=== PATIENT | male | born 1950 | race Caucasian/White ===

== ENCOUNTER 2020-09-26 05:58 | Inpatient (IN) ==
[2020-09-21 16:26] LABS: Basophils # 0.1 10*3/uL (0.0-0.2); Basophils % 1.1 % (0.0-0.8); Eosinophils # 0.3 10*3/uL (0.0-0.87); Eosinophils % 4.2 % (0.00-10.9); Hematocrit 46.4 VOL% (42.0-52.0); Hemoglobin 14.4 GM/DL (14.0-18.0); Immature Granulocytes % 0.5 %; Immature Granulocytes Absolute 0.04 #; Lymphocytes # 2.1 10*3/uL (1.4-4.0); Lymphocytes % 26.5 % (21.2-54.2); Mean Platelet Volume 10.1 FL (9.6-12.0); Neutrophils % 56.7 % (38.7-73.9); Platelet Count 210 T/CUMM (130-400); Red Blood Count 4.64 MC/CUMM (3.8-5.5); Red Cell Distribution Width 13.9 % (9.3-17.3); White Blood Count 7.9 T/CUMM (4-12)
[2020-09-21 16:43] LABS: Calcium 8.5 MG/DL (8.5-10.1); Osmolality,Calculated 290.4 MOS/KG (273-304); Potassium 4.4 MMOL/L (3.5-5.1)
[2020-09-26] MEDS ORDERED: ALVIMOPAN 12 MG CAPSULE PO ONE (06:00)
[2020-09-26] MEDS ORDERED: ERTAPENEM 1,000 MG in SODIUM CHLORIDE 0.9% 100 ML IV ONE (06:00)
[2020-09-26] MEDS ORDERED: TISSUE ADHESIVE 1 EACH APPLICATOR TOP ONE (06:21)
[2020-09-26] MEDS ORDERED: INDOCYANINE GREEN 25 MG VIAL IV ONE (06:22)
[2020-09-26] MEDS ORDERED: MIDAZOLAM 2 MG/2 ML VIAL ONE (06:41)
[2020-09-26] MEDS ORDERED: fentaNYL 100 MCG/2 ML VIAL ONE ×2 (06:41→07:41)
[2020-09-26] MEDS ORDERED: ROPIVACAINE 0.5% 30 ML VIAL ONE (06:47)
[2020-09-26] MEDS ORDERED: LIDOCAINE 2% 5 ML VIAL ONE ×2 (06:48→07:45)
[2020-09-26 06:56] LABS: INR 1.3; Partial Thromboplastin Time 22.3 SECS (23.9-33.8)
[2020-09-26] MEDS ORDERED: LACTATED RINGERS 1,000 ML IV SCH (07:00)
[2020-09-26] MEDS ORDERED: propofoL 200 MG/20 ML VIAL IV ONE ×2 (07:45→08:42)
[2020-09-26] MEDS ORDERED: ACETAMINOPHEN INJ 1,000 MG/100 ML VIAL IV ONE (07:45)
[2020-09-26] MEDS ORDERED: ROCURONIUM 50 MG/5 ML VIAL IV ONE (07:45)
[2020-09-26] MEDS ORDERED: LACTATED RINGERS 1,000 ML IV ONE ×4 (07:45→19:31)
[2020-09-26] MEDS ORDERED: ONDANSETRON 4 MG/2 ML VIAL ONE (07:45)
[2020-09-26] MEDS ORDERED: SEVOFLURANE 1 UNIT/15 MINUTE INH ONE ×3 (07:45→09:21)
[2020-09-26] MEDS ORDERED: LABETALOL 20 MG/4 ML SYRINGE IV ONE (07:58)
[2020-09-26] MEDS ORDERED: PHENYLEPHRINE 1 MG/10 ML SYRINGE IV ONE (07:59)
[2020-09-26] MEDS ORDERED: NEOSTIGMINE 10 MG/10 ML VIAL ONE (09:04)
[2020-09-26] MEDS ORDERED: GLYCOPYRROLATE 0.4 MG/2 ML VIAL ONE (09:04)
[2020-09-26] MEDS ORDERED: HYDROmorphone 2 MG/1 ML VIAL IV PRN ×2 (10:08→10:42)
[2020-09-26] MEDS ORDERED: ONDANSETRON 4 MG/2 ML VIAL IV PRN ×2 (10:08→10:42)
[2020-09-26] MEDS ORDERED: MEPERIDINE 25 MG/1 ML VIAL IV PRN (10:08)
[2020-09-26] MEDS ORDERED: diphenhydrAMINE 50 MG/1 ML VIAL IV PRN (10:08)
[2020-09-26] MEDS ORDERED: PROMETHAZINE INJ 25 MG in SODIUM CHLORIDE 0.9% 50 ML IV PRN (10:08)
[2020-09-26] MEDS ORDERED: CYCLOBENZAPRINE 10 MG TABLET PO PRN (10:42)
[2020-09-26] MEDS ORDERED: DEXTROSE 50% 25 GM/50 ML VIAL IV PRN ×2 (10:42)
[2020-09-26] MEDS ORDERED: GLUCAGON 1 MG VIAL IM PRN ×2 (10:42)
[2020-09-26 11:57] LABS: Basophils # 0.1 10*3/uL (0.0-0.2); Eosinophils # 0.2 10*3/uL (0.0-0.87); Hematocrit 43.5 VOL% (42.0-52.0); Hemoglobin 13.7 GM/DL (14.0-18.0); Immature Granulocytes % 0.6 %; Immature Granulocytes Absolute 0.05 #; Lymphocytes # 1.5 10*3/uL (1.4-4.0); Mean Corpuscular HGB Conc 31.5 GM/DL (32-36); Mean Corpuscular Volume 98.6 FL (87-102); Mean Platelet Volume 9.4 FL (9.6-12.0); Monocytes % 9.9 % (1.7-12.7); Neutrophils % 68.5 % (38.7-73.9); Platelet Count 212 T/CUMM (130-400); Red Blood Count 4.41 MC/CUMM (3.8-5.5); White Blood Count 8.3 T/CUMM (4-12)
[2020-09-26 12:26] LABS: Calcium 8.3 MG/DL (8.5-10.1); Osmolality,Calculated 280.7 MOS/KG (273-304); Potassium 4.5 MMOL/L (3.5-5.1)
[2020-09-26] MEDS: KETOROLAC 15 MG/1 ML VIAL IV SCH ×3 (12:46→23:50)
[2020-09-26] MEDS: INSULIN REGULAR 100 UNIT/ML SUBCUT SCH ×3 (12:49→21:28)
[2020-09-26] MEDS: WARFARIN 7.5 MG TABLET PO SCH (18:02)
[2020-09-26] MEDS: PARoxetine 20 MG TABLET PO SCH (21:29)
[2020-09-26] MEDS: ATORVASTATIN 10 MG TABLET PO SCH (21:29)
[2020-09-26] MEDS: ALVIMOPAN 12 MG CAPSULE PO SCH (21:29)
[2020-09-26] MEDS: PANTOPRAZOLE 40 MG TABLET PO SCH (21:29)
[2020-09-26] MEDS: LACTATED RINGERS 1,000 ML IV SCH ×2 (21:37→22:12)
[2020-09-27] MEDS: KETOROLAC 15 MG/1 ML VIAL IV SCH ×3 (05:50→17:37)
[2020-09-27] MEDS: ENOXAPARIN 40 MG/0.4 ML SYRINGE SUBCUT SCH (05:50)
[2020-09-27 06:32] LABS: Basophils # 0.1 10*3/uL (0.0-0.2); Basophils % 0.6 % (0.0-0.8); Eosinophils # 0.1 10*3/uL (0.0-0.87); Eosinophils % 1.4 % (0.00-10.9); Hematocrit 38.9 VOL% (42.0-52.0); Hemoglobin 12.2 GM/DL (14.0-18.0); Immature Granulocytes % 0.3 %; Immature Granulocytes Absolute 0.03 #; Lymphocytes % 22.7 % (21.2-54.2); Mean Corpuscular HGB Conc 31.4 GM/DL (32-36); Mean Corpuscular Volume 99.7 FL (87-102); Mean Platelet Volume 9.6 FL (9.6-12.0); Monocytes % 13.2 % (1.7-12.7); Neutrophils % 61.8 % (38.7-73.9); Platelet Count 184 T/CUMM (130-400); Red Cell Distribution Width 14.1 % (9.3-17.3); White Blood Count 8.9 T/CUMM (4-12)
[2020-09-27 07:03] LABS: Calcium 8.1 MG/DL (8.5-10.1); Osmolality,Calculated 280.7 MOS/KG (273-304); Potassium 4.2 MMOL/L (3.5-5.1)
[2020-09-27] MEDS: LACTATED RINGERS 1,000 ML IV SCH ×2 (07:25→17:57)
[2020-09-27] MEDS: INSULIN REGULAR 100 UNIT/ML SUBCUT SCH ×4 (07:47→20:50)
[2020-09-27] MEDS: ALVIMOPAN 12 MG CAPSULE PO SCH ×2 (09:33→20:51)
[2020-09-27] MEDS: ASPIRIN 325 MG TABLET PO SCH (09:33)
[2020-09-27] MEDS: CHOLECALCIFEROL 1,000 UNIT TABLET PO SCH (09:33)
[2020-09-27] MEDS: FEXOFENADINE 180 MG TABLET PO SCH (09:33)
[2020-09-27] MEDS: ZINC GLUCONATE 50 MG TABLET PO SCH (09:34)
[2020-09-27] MEDS: ASCORBIC ACID 500 MG TABLET PO SCH (09:34)
[2020-09-27] MEDS: WARFARIN 7.5 MG TABLET PO SCH (17:37)
[2020-09-27] MEDS: PARoxetine 20 MG TABLET PO SCH (20:50)
[2020-09-27] MEDS: PANTOPRAZOLE 40 MG TABLET PO SCH (20:50)
[2020-09-27] MEDS: ATORVASTATIN 10 MG TABLET PO SCH (20:50)
[2020-09-27] MEDS ORDERED: GABAPENTIN 400 MG CAPSULE PO SCH (21:00)
[2020-09-28] MEDS: KETOROLAC 15 MG/1 ML VIAL IV SCH ×3 (01:15→12:17)
[2020-09-28] MEDS: ENOXAPARIN 40 MG/0.4 ML SYRINGE SUBCUT SCH (05:21)
[2020-09-28 05:38] LABS: Basophils # 0.1 10*3/uL (0.0-0.2); Basophils % 0.6 % (0.0-0.8); Eosinophils # 0.5 10*3/uL (0.0-0.87); Eosinophils % 4.8 % (0.00-10.9); Hematocrit 36.8 VOL% (42.0-52.0); Hemoglobin 11.4 GM/DL (14.0-18.0); Immature Granulocytes % 0.4 %; Immature Granulocytes Absolute 0.04 #; Lymphocytes # 2.3 10*3/uL (1.4-4.0); Lymphocytes % 24.3 % (21.2-54.2); Mean Corpuscular Volume 100.3 FL (87-102); Mean Platelet Volume 9.2 FL (9.6-12.0); Monocytes % 12.1 % (1.7-12.7); Neutrophils % 57.8 % (38.7-73.9); Platelet Count 168 T/CUMM (130-400); Red Blood Count 3.67 MC/CUMM (3.8-5.5); Red Cell Distribution Width 13.7 % (9.3-17.3); White Blood Count 9.5 T/CUMM (4-12)
[2020-09-28 06:31] LABS: Calcium 8.2 MG/DL (8.5-10.1); Osmolality,Calculated 287.3 MOS/KG (273-304)
[2020-09-28] MEDS: CHOLECALCIFEROL 1,000 UNIT TABLET PO SCH (08:42)
[2020-09-28] MEDS: ZINC GLUCONATE 50 MG TABLET PO SCH (08:42)
[2020-09-28] MEDS: INSULIN REGULAR 100 UNIT/ML SUBCUT SCH ×2 (08:42→12:16)
[2020-09-28] MEDS: ASCORBIC ACID 500 MG TABLET PO SCH (08:42)
[2020-09-28] MEDS: ALVIMOPAN 12 MG CAPSULE PO SCH (08:42)
[2020-09-28] MEDS: ASPIRIN 325 MG TABLET PO SCH (08:42)
[2020-09-28] MEDS: FEXOFENADINE 180 MG TABLET PO SCH (08:42)
[2020-09-28 11:28] VITALS: BP 125/70
[2020-09-28] MEDS ORDERED: AMOXICILLIN/CLAV 875 MG TABLET PO SCH (11:30)
== END 2020-09-28 12:43 | disposition home or self-care (01) | DRG 331 ==
LOC: N.OR 05:58 → N.SDSINP 05:59 → N.3E 09:32
PROVIDERS: ADMIT Surgery; ATTEND Surgery